=== PATIENT | male | born 1970 | race Caucasian/White ===

== ENCOUNTER → 2022-05-07 | Emergency (ER) | payer OTHER ==
[~2022-05-07] VITALS: Ht 170.2 cm; Wt 81.6 kg
[~2022-05-07] MED LIST: CLIN-142 PO; CLINDAMYCIN HCL 150 MG CAPSULE PO ONE; HYDROcodone/ACETAMIN 5-325 MG TAB (NORCO/ VICODIN) PO ONE; IBUP-1969 PO; IBUPROFEN 600 MG TABLET PO ONE; cefTRIAXone 1 GM in LIDOCAINE 1%, 20 ML MDV 2.1 ML IM ONE
--- NOTE | 2022-05-08 01:35 | NUR ---
pt /c/o spider bite on left inner thigh while doing some work in the garage, vs taken afebrile placed in waiting room.
[2022-05-08 01:36] VITALS: BP_SYST 142
--- NOTE | 2022-05-08 03:30 | NUR ---
MEDICATED IM ANTIBIOTICS AND ORAL MEDS.
--- NOTE | 2022-05-08 03:40 | NUR ---
Patient given written and verbal discharge instructions and verbalizes understanding. ER DR Saul GAN MD discussed with patient the results and treatment provided. Patient in stable condition. ID arm band removed. Rx of ORAL ANTIBIOTICS AND PAIN MEDS GIVEN given. Patient educated on pain management and to follow up with PMD. Pain Scale . Opportunity for questions provided and answered. Medication side effect fact sheet provided.
[2022-05-08 06:07] VITALS: BP_SYST 137
== END | disposition home or self-care (01) ==
LOC: SED 23:46
DX: L03.116 Cellulitis of left lower limb (principal); F17.200 Nicotine dependence, unspecified, uncomplicated
CPT/HCPCS: 96372; 99284; J0696; J2001

== ENCOUNTER 2023-09-08 19:16 | Emergency (ER) | payer MEDICAID, OTHER ==
[~2023-09-08] VITALS: Ht 175.3 cm; Wt 77.1 kg
[~2023-09-08 19:16] MED LIST changes: -CLINDAMYCIN HCL 150 MG CAPSULE PO ONE; -HYDROcodone/ACETAMIN 5-325 MG TAB (NORCO/ VICODIN) PO ONE; -IBUPROFEN 600 MG TABLET PO ONE; -cefTRIAXone 1 GM in LIDOCAINE 1%, 20 ML MDV 2.1 ML IM ONE
[2023-09-08 19:56] VITALS: BP_SYST 112; PULSE 60; RESP 18; TEMP 98.1; O2SAT 100
[2023-09-08] MEDS ORDERED: ONDANSETRON 4 MG ODT TAB PO ONE (20:15)
[2023-09-08] MEDS ORDERED: cloNIDine HCL 0.1 MG TABLET PO ONE ×2 (20:15→21:15)
[2023-09-08 21:24] VITALS: BP_SYST 118; PULSE 93; RESP 16; O2SAT 98
== END 2023-09-08 21:24 ==
LOC: SED 19:16
DX: Z02.89 Encounter for other administrative examinations (principal); F11.23 Opioid dependence with withdrawal; Z79.899 Other long term (current) drug therapy
CPT/HCPCS: 99284; Q0162